=== PATIENT | female | born 1950 | race Caucasian/White ===

== ENCOUNTER 2021-04-26 18:09 | Inpatient (IN) | payer MEDICARE, OTHER ==
[~2021-04-26] VITALS: Ht 162.6 cm; Wt 73.5 kg
[~2021-04-26 18:09] MED LIST: FOLIC ACID1 MG PO; NORCO 5-325 TA1 EACH PO; PROTONIX40 MG PO; RAMIPRIL2.5 MG PO; TENORMIN 25 MG25 MG PO; VITAMIN D PO
[2021-04-26 19:16] LABS: RED BLOOD COUNT 3.83 M/UL (4.00-5.10); WHITE BLOOD COUNT 9.9 K/UL (4.5-11.0)
[2021-04-26 19:46] LABS: BUN/CREATININE RATIO 20 (0-10)
[2021-04-27] MEDS ORDERED: CRESTOR20 MG PO ×2 (09:26→09:34)
[2021-04-27] MEDS ORDERED: AMARYL 2MG TABLE2 MG PO (10:24)
[2021-04-27] MEDS ORDERED: METFORMIN HCL750 MG PO (10:25)
[2021-04-27] MEDS ORDERED: LOSARTAN POTASS25 MG PO (10:25)
[2021-04-27] MEDS ORDERED: ZOCOR40 MG PO (11:18)
[2021-04-27] MEDS ORDERED: SULFASALAZINE500 MG PO (11:20)
[2021-04-28 02:06] LABS: HEMOGLOBIN 12.3 gm/dl (12.3-15.3); RED BLOOD COUNT 3.68 M/UL (4.00-5.10); WHITE BLOOD COUNT 8.4 K/UL (4.5-11.0)
[2021-04-28 02:58] LABS: BUN/CREATININE RATIO 15 (0-10)
[2021-04-28] MEDS ORDERED: ASPIRIN EC81 MG PO (08:50)
[2021-04-28] MEDS ORDERED: ATORVASTATIN CA20 MG PO (08:50)
[2021-04-28] MEDS ORDERED: BRILINTA 90 MG90 MG PO (08:50)
[2021-04-28] MEDS ORDERED: LISINOPRIL5 MG PO (10:07)
[2021-04-28] MEDS ORDERED: LOPRESSOR 25 MG25 MG PO (10:07)
== END 2021-04-28 11:05 | disposition home or self-care (01) | DRG 247 ==
LOC: ER1 18:09 → CDU 22:34 → PROG CARE 22:34
PROVIDERS: Internal Medicine; Physician Assistant; ADMIT Internal Medicine
PROC: 027034Z Dilation of Coronary Artery, One Artery with Drug-eluting Intraluminal Device, Percutaneous Approach (ICD-10-PCS; principal; 2021-04-27)
PROC: 4A023N7 Measurement of Cardiac Sampling and Pressure, Left Heart, Percutaneous Approach (ICD-10-PCS; 2021-04-27)
PROC: B2111ZZ Fluoroscopy of Multiple Coronary Arteries using Low Osmolar Contrast (ICD-10-PCS; 2021-04-27)
PROC: B24BZZZ Ultrasonography of Heart with Aorta (ICD-10-PCS; 2021-04-28)
DX: I21.4 Non-ST elevation (NSTEMI) myocardial infarction (principal); E11.9 Type 2 diabetes mellitus without complications; I20.0 Unstable angina; I08.1 Rheumatic disorders of both mitral and tricuspid valves; Z20.822 Contact with and (suspected) exposure to COVID-19; I10 Essential (primary) hypertension; E78.5 Hyperlipidemia, unspecified; G89.29 Other chronic pain; F11.90 Opioid use, unspecified, uncomplicated; K21.9 Gastro-esophageal reflux disease without esophagitis; Z82.49 Family history of ischemic heart disease and other diseases of the circulatory system; Z79.01 Long term (current) use of anticoagulants; Z79.82 Long term (current) use of aspirin; Z79.84 Long term (current) use of oral hypoglycemic drugs
CPT/HCPCS: ECHO; 36415; 71045; 80048; 80053; 80061; 82550; 82553; 82962; 83036; 83690; 83735; 83874; 83880; 84439; 84443; 84484; 84550; 85025; 85027; 85347; 85610; 85730; 92978; 93005; 93306; 96374; 96375; 99152; 99153; 99285; C1725; C1753; C1769; C1874; C1887; C1894; C9113; C9600; G0378; J1644; J2250; J2405; J3010; J7030; J7040; Q9967; U0002